=== PATIENT | female | born 1995 | race Caucasian/White ===

== ENCOUNTER 2018-06-25 16:02 | Emergency (ER) | payer BC ==
--- NOTE | 2018-06-25 16:04 | ER Report ---
History and Physical Time Seen By MD: 16:05 HPI/ROS CHIEF COMPLAINT: PASSED OUT HISTORY OF PRESENT ILLNESS: Pt has hx of syncope. States usually it is if she sees something scary or had blood work. Pt was in class today and felt as if she was going to pass out. Vision changed, dizzy, hot flash, sob then passed out. States whenever she passes out she usually drinks something and then feels better. Left the class to get something to drink and passed out again with standing. Pt passed out for ems again and vomited. Pt currently crying but states she feels better. pt was sick recently with upper resp infection/r ear infection. Ear pain is better but still has runny nose and occasional cough. no fevers. pt admits to not eating and drinking very well. no headache. no cp REVIEW OF SYSTEMS: Constitutional: No fever, no chills. Eyes: No discharge. ENT: No sore throat, recent r ear pain, runnynose Cardiovascular: No chest pain, no palpitations, + syncope Respiratory: No cough, no shortness of breath. Gastrointestinal: No abdominal pain, no vomiting. Genitourinary: No hematuria. Musculoskeletal: No back pain. Skin: No rashes. Neurological: No headache. Allergies: Coded Allergies: No Known Allergies (Verified Allergy, Unknown, 06/25/18) Home Meds Reported Medications Mesalamine (LIALDA) 1.2 Gm Tablet.dr, 1.2 GM PO QDAY 06/25/18 Desogestrel-Ethinyl Estradiol (ENSKYCE) 1 Each Tablet, PO QDAY 06/25/18 Past Medical/Surgical History pmhx: ulcerative colitis, syncope Hx Smoking: No (uses nicotine patches) Smoking Status: Former Smoker Hx Alcohol Use: Yes (socially) Constitutional Vital Sign - Last 24 Hours 06/25/18 06/25/18 06/25/18 06/25/18 16:02 16:04 16:08 16:15 Temp 97.6 Pulse 62 63 58 Resp 14 12 B/P (MAP) 108/57 (74) 108/57 98/59 (72) Pulse Ox 95 93 O2 Delivery Room Air 06/25/18 06/25/18 06/25/18 06/25/18 16:17 16:21 16:30 16:32 Pulse 52 63 49 Resp 10 B/P (MAP) 105/65 (78) 102/81 (88) 93/53 (66) Pulse Ox 98 Physical Exam General Appearance: The patient is alert, has no immediate need for airway protection and no signs of toxicity. Eyes: Pupils equal and round no pallor or injection, EOMI ENT: no pharyngeal erythema or exudates, Mucous membranes are moist, TM are nl b/l Respiratory: There are no retractions, lungs are clear to auscultation. Cardiovascular: Regular rate and rhythm. pulses are equal and symmetrical Gastrointestinal: Abdomen is soft and non tender, no masses, bowel sounds normal, no guarding, no rigidity or rebound Neurological: Cranial nerves II-XII grossly intact, no sensory or motor loss Skin: Warm and dry, no rashes. Musculoskeletal: Neck is supple non tender, no vertebral tenderness Extremities are nontender, nonswollen and have full range of motion. DIFFERENTIAL DIAGNOSIS: After history and physical exam differential diagnosis was considered for dehydration, orthostatic hypotension, electrolyte abnl, arrhythmia Medical Decision Making Data Points Result Diagram: 06/25/18 1631 06/25/18 1631 Laboratory Hematology Test 06/25/18 16:31 06/25/18 16:33 Red Blood Count 4.34 M/uL (4.17-5.56) Mean Corpuscular Volume 91.7 fL (80.0-96.0) Mean Corpuscular Hemoglobin 31.6 pg (26.0-33.0) Mean Corpuscular Hemoglobin Concent 34.5 g/dL (32.0-36.0) Red Cell Distribution Width 11.7 % (11.5-14.5) Mean Platelet Volume 7.5 fL (7.2-11.1) Neutrophils (%) (Auto) 63.5 % (39.4-72.5) Lymphocytes (%) (Auto) 28.0 % (17.6-49.6) Monocytes (%) (Auto) 4.8 % (4.1-12.4) Eosinophils (%) (Auto) 3.0 % (0.4-6.7) Basophils (%) (Auto) 0.7 % (0.3-1.4) Nucleated RBC Relative Count (auto) 0.0 /100WBC Neutrophils # (Auto) 5.7 K/uL (2.0-7.4) Lymphocytes # (Auto) 2.5 K/uL (1.3-3.6) Monocytes # (Auto) 0.4 K/uL (0.3-1.0) Eosinophils # (Auto) 0.3 K/uL (0.0-0.5) Basophils # (Auto) 0.1 K/uL (0.0-0.1) Nucleated RBC Absolute Count (auto) 0.00 K/uL Sodium Level 138 mmol/L (137-145) Potassium Level 3.6 mmol/L (3.5-5.0) Chloride Level 108 mmol/L (98-107) Carbon Dioxide Level 20 mmol/L (22-31) Blood Urea Nitrogen 9 mg/dl (7-18) Creatinine 0.80 mg/dl (0.52-1.04) Glomerular Filtration Rate Calc > 60.0 Random Glucose 115 mg/dl (75-110) Calcium Level 9.0 mg/dl (8.4-10.2) Total Bilirubin 0.3 mg/dl (0.2-1.3) Aspartate Amino Transf (AST/SGOT) 22 U/L (0-35) Alanine Aminotransferase (ALT/SGPT) 21 U/L (0-56) Alkaline Phosphatase 59 U/L (0-126) Total Protein 7.2 g/dl (6.3-8.2) Albumin 3.8 g/dl (3.5-5.0) Human Chorionic Gonadotropin, Qual Negative (NEGATIVE) Influenza Virus Type A (PCR) Negative (NEGATIVE) Influenza Virus Type B (PCR) Negative (NEGATIVE) Chemistry Test 06/25/18 16:31 06/25/18 16:33 White Blood Count 9.0 k/uL (4.5-11.0) Red Blood Count 4.34 M/uL (4.17-5.56) Hemoglobin 13.7 g/dL (12.0-16.0) Hematocrit 39.8 % (34.0-47.0) Mean Corpuscular Volume 91.7 fL (80.0-96.0) Mean Corpuscular Hemoglobin 31.6 pg (26.0-33.0) Mean Corpuscular Hemoglobin Concent 34.5 g/dL (32.0-36.0) Red Cell Distribution Width 11.7 % (11.5-14.5) Platelet Count 391 K/uL (150-450) Mean Platelet Volume 7.5 fL (7.2-11.1) Neutrophils (%) (Auto) 63.5 % (39.4-72.5) Lymphocytes (%) (Auto) 28.0 % (17.6-49.6) Monocytes (%) (Auto) 4.8 % (4.1-12.4) Eosinophils (%) (Auto) 3.0 % (0.4-6.7) Basophils (%) (Auto) 0.7 % (0.3-1.4) Nucleated RBC Relative Count (auto) 0.0 /100WBC Neutrophils # (Auto) 5.7 K/uL (2.0-7.4) Lymphocytes # (Auto) 2.5 K/uL (1.3-3.6) Monocytes # (Auto) 0.4 K/uL (0.3-1.0) Eosinophils # (Auto) 0.3 K/uL (0.0-0.5) Basophils # (Auto) 0.1 K/uL (0.0-0.1) Nucleated RBC Absolute Count (auto) 0.00 K/uL Glomerular Filtration Rate Calc > 60.0 Calcium Level 9.0 mg/dl (8.4-10.2) Total Bilirubin 0.3 mg/dl (0.2-1.3) Aspartate Amino Transf (AST/SGOT) 22 U/L (0-35) Alanine Aminotransferase (ALT/SGPT) 21 U/L (0-56) Alkaline Phosphatase 59 U/L (0-126) Total Protein 7.2 g/dl (6.3-8.2) Albumin 3.8 g/dl (3.5-5.0) Human Chorionic Gonadotropin, Qual Negative (NEGATIVE) Influenza Virus Type A (PCR) Negative (NEGATIVE) Influenza Virus Type B (PCR) Negative (NEGATIVE) EKG/Imaging EKG Interpretation Sinus vidal with sinus arrhythmia @ 52 ED Course/Re-evaluation Clinical Indication for ER IV: Hydration, IV Access ED Course check labs and orthostatics. Pt not orthstatic Pt is feeling better. Fluids completed. labs stable. PT is to follow up with [facility]. We do not have any holter monitors available in the hospital currently. If she continues to have frequent syncope she was told to return Decision to Disposition Date: Jun 25, 2018 Decision to Disposition Time: 17:29 Depart Departure Latest Vital Signs Vital Signs Date Time Temp Pulse Resp B/P (MAP) Pulse Ox O2 Delivery O2 Flow Rate FiO2 06/25/18 16:32 49 10 98 06/25/18 16:30 93/53 (66) 06/25/18 16:08 97.6 Room Air Impression: Primary Impression: Syncope and collapse Condition: Improved Disposition: HOME OR SELF-CARE Patient Instructions: Syncope (ED) Additional Instructions: Your blood work and chest xray today were stable. Follow up with your doctor. Return if symptoms worsen or you have any concerns. ADELAIDA NUNEZ DO Jun 25, 2018 16:04
[2018-06-25] MEDS ORDERED: DESO1TAB74 PO (16:13)
[2018-06-25] MEDS ORDERED: MESA1.2T2 PO (16:13)
--- NOTE | 2018-06-25 16:32 | EKG ---
FACILITY: [facility] [place] PATIENT NAME: RHODA LIMON : [id number] MR: [id number] V: [id number] EXAM DATE: ORDERING PHYSICIAN: ADELAIDA NUNEZ TECHNOLOGIST: JEAN PAUL Test Reason : PASSED OUT Blood Pressure : / mmHG Vent. Rate : 052 BPM Atrial Rate : 052 BPM P-R Int : 168 ms QRS Dur : 084 ms QT Int : 468 ms P-R-T Axes : 000 052 066 degrees QTc Int : 435 ms Sinus bradycardia with sinus arrhythmia Otherwise normal ECG No previous ECGs available Confirmed by CELE MOISE ([id number]) on 06/25/2018 8:21:20 PM Referred By: ENRIQUE Confirmed By:CELE MOISE
[2018-06-25 16:38] LABS: PLATELET COUNT, AUTOMATED 391 K/uL (150-450)
[2018-06-25 17:20] VITALS: BP 114/74
--- NOTE | 2018-06-25 17:25 | RADIOLOGY IMAGING REPORT ---
[place] [facility] [place] Veronique House : 1995 MR: [id number] V: [id number] EXAM DATE: ORDERING PHYSICIAN: ADELAIDA NUNEZ TECHNOLOGIST: [place] [facility] [place] Patient: Veronique House : 1995 Visit/Account:[id number] Date of Sevice: 06/25/2018 2 VIEWS CHEST INDICATION: Cough. Loss of consciousness. COMPARISON: None available FINDINGS: Cardiomediastinal silhouette and pulmonary vessels within normal limits. There is no focal infiltrate or lobar consolidation. There is no pneumothorax or pleural effusion. No nodule. Upper abdomen is unremarkable. No acute bony abnormality. IMPRESSION: 1. No acute cardiopulmonary process. Report Dictated By: Hans Patel at 06/25/2018 5:19 PM Report E-Signed By: Hans Patel at 06/25/2018 5:20 PM WSN:[id number]
== END 2018-06-25 17:35 | disposition home or self-care (01) ==
LOC: ER 16:07
DX: R55 Syncope and collapse (principal)
CPT/HCPCS: 71046; 82040; 82247; 82310; 82374; 82435; 82565; 82947; 84075; 84132; 84155; 84295; 84450; 84460; 84520; 84703; 85025; 87502; 93005; 99284

== ENCOUNTER → 2018-06-25 | Outpatient (CLI) | payer BC ==
[~2018-06-25] MED LIST: DESO1TAB74 PO; MESA1.2T2 PO
== END ==
LOC: AMB 15:38
PROVIDERS: ATTEND Nurse Practitioner
DX: R55 Syncope and collapse (principal); R11.10 Vomiting, unspecified
CPT/HCPCS: A0425; A0427

== ENCOUNTER → 2018-09-12 | Outpatient (CLI) | payer BC | LOC: US 01:18 | PROVIDERS: ATTEND Internal Medicine | DX: R55 Syncope and collapse (principal) | CPT/HCPCS: 93306 ==

== ENCOUNTER 2018-10-03 19:27 | Emergency (ER) | payer BC ==
[2018-10-03 19:33] VITALS: BP 135/90
--- NOTE | 2018-10-03 19:39 | ER Report ---
History and Physical Time Seen By MD: 19:39 Hx. of Stated Complaint: TOES INFECTED HPI/ROS CHIEF COMPLAINT: Toe infections HISTORY OF PRESENT ILLNESS: 22-year-old female patient presents to emergency room with complaint of bilateral total infections. Patient states that she had a pedicure done this past week. She states that the next day her toes started becoming red, tender to touch. Patient states that she has fair amount of pain when she is ambulating. She states that her pain is a 2 out of 10. She denies any nausea, vomiting or diarrhea. She denies having any fevers or chills. Patient states she is not taking any medication for this. She states that there was some bleeding after her pedicure taking her believe there was some damage to skin around the toenails. Allergies: Coded Allergies: No Known Allergies (Verified Allergy, Unknown, 10/03/18) Home Meds Active Scripts Cephalexin 500 Mg Tab (KEFLEX 500 MG TAB) 500 Mg Tablet, 500 MG PO TID, #21 TAB Prov:BIANCA ARMSTRONG [employer] 10/03/18 Reported Medications Mesalamine (LIALDA) 1.2 Gm Tablet.dr, 1.2 GM PO QDAY 06/25/18 Desogestrel-Ethinyl Estradiol (ENSKYCE) 1 Each Tablet, PO QDAY 06/25/18 Past Medical/Surgical History Patient has a past medical history of Crohn's disease, alcohol use. Patient has a surgical history of wisdom teeth removed Reviewed Nurses Notes: Yes Hx Smoking: No (uses nicotine patches) Smoking Status: Former Smoker Hx Substance Use Disorder: No Hx Alcohol Use: Yes (socially) Constitutional Vital Sign - Last 24 Hours 10/03/18 19:33 Temp 98.1 Pulse 92 Resp 16 B/P (MAP) 135/90 Pulse Ox 98 Physical Exam General Appearance: The patient is alert, has no immediate need for airway protection and no current signs of toxicity. Respiratory: Chest is non tender, lungs are clear to auscultation. Cardiac: regular rate and rhythm Gastrointestinal: Abdomen is soft and non tender, no masses, bowel sounds normal. Skin: No rashes or lesions. Patient does have redness, swelling to bilateral third toes, she has some redness to the fifth toes as well. DIFFERENTIAL DIAGNOSIS: After history and physical exam differential diagnosis was considered for cellulitis. Medical Decision Making ED Course/Re-evaluation ED Course Patient was admitted to an exam room, history and physical were obtained. Differential diagnoses were considered. On examination lungs are clear, heart is regular, abdomen soft nontender. Patient does have some redness and erythema to bilateral third and fifth toes. They're tender to touch. I believe that this is likely a cellulitis secondary to trauma caused by the pedicure. We will go ahead and treat her with Keflex 500 mg 3 times a day 7 days. She is follow-up with her primary care provider in a week with any concerns. I anticipate that things will improve over the next 48-72 hours. She is to return to the emergency room if condition worsens. Patient verbalized understanding and agreement with plan. Decision to Disposition Date: Oct 03, 2018 Decision to Disposition Time: 19:51 Depart Departure Latest Vital Signs Vital Signs Date Time Temp Pulse Resp B/P (MAP) Pulse Ox O2 Delivery O2 Flow Rate FiO2 10/03/18 19:33 98.1 92 16 135/90 98 Impression: Primary Impression: Cellulitis of toe of left foot Additional Impression: Cellulitis of toe of right foot Condition: Improved Disposition: HOME OR SELF-CARE New Scripts Cephalexin 500 Mg Tab (KEFLEX 500 MG TAB) 500 Mg Tablet 500 MG PO TID, #21 TAB Prov: BIANCA ARMSTRONG 10/03/18 Patient Instructions: Cellulitis (ED) Additional Instructions: Limit activity by pain. Take Tylenol or Ibuprofen as needed for pain. Get plenty of rest. Take the antibiotics as directed. Return to the ER if condition worsens. Problem Qualifiers BIANCA ARMSTRONG Oct 03, 2018 19:39
[2018-10-03] MEDS ORDERED: CEPH500T7 PO (19:49)
== END 2018-10-03 20:02 | disposition home or self-care (01) ==
LOC: ER 19:46
DX: L03.032 Cellulitis of left toe (principal); L03.031 Cellulitis of right toe
CPT/HCPCS: 99282

== ENCOUNTER 2018-10-13 11:57 | Emergency (ER) | payer BC ==
[~2018-10-13 11:57] MED LIST changes: +CEPH500T7 PO
--- NOTE | 2018-10-13 12:00 | ER Report ---
History and Physical Time Seen By MD: 12:00 HPI/ROS CHIEF COMPLAINT: Infection of toes HISTORY OF PRESENT ILLNESS: 21-year-old female patient presents to emergency room with complaint of infection in toes. Patient states that she was seen on the sixth and was diagnosed with cellulitis of toes on the right and left foot. Patient states that she took the antibiotics as prescribed last time and had no improvement. She states she did follow up with urgent care and was given a prescription for steroids. She states that she was concerned about taking them as the provider seemed unsure as to how effective that would be. Patient states she has pain that is worse in the evenings. She states that starts in the mo rning. She denies any fevers, chills, nausea, vomiting or diarrhea. Allergies: Coded Allergies: azithromycin (Verified Allergy, Severe, HIVES, 10/13/18) Home Meds Active Scripts Sulfamethoxazole/Trimet 800-160 Mg Tab (BACTRIM DS TABLET) 1 Each Tablet, 1 TAB PO Q12H, #14 TAB Prov:BIANCA ARMSTRONG [facility] 10/13/18 Cephalexin 500 Mg Tab (KEFLEX 500 MG TAB) 500 Mg Tablet, 500 MG PO TID, #21 TAB Prov:BIANCA ARMSTRONG [facility] 10/03/18 Reported Medications Mesalamine (LIALDA) 1.2 Gm Tablet.dr 1.2 GM PO QDAY 06/25/18 Desogestrel-Ethinyl Estradiol (ENSKYCE) 1 Each Tablet, PO QDAY 06/25/18 Past Medical/Surgical History Patient has a past medical history of ulcerative colitis, alcohol use. Patient has surgical history of wisdom teeth removal. Reviewed Nurses Notes: Yes Hx Smoking: No (uses nicotine patches) Smoking Status: Former Smoker Hx Substance Use Disorder: No Hx Alcohol Use: Yes (socially) Constitutional Vital Sign - Last 24 Hours 10/13/18 12:04 Temp 98.5 Pulse 86 Resp 12 B/P (MAP) 143/93 Pulse Ox 95 O2 Delivery Room Air Physical Exam General appearance: Alert no distress. Respiratory: Chest is non tender, lungs are clear to auscultation. Cardiac: Regular rate and rhythm. Skin: Patient has redness to bilateral toes. Tender to the touch. DIFFERENTIAL DIAGNOSIS: After history and physical exam differential diagnosis was considered for cellulitis, inflammatory process. Medical Decision Making ED Course/Re-evaluation ED Course Patient was admitted and examined, history and physical were obtained. The differential diagnoses were considered. On examination lungs are clear, heart is regular, abdomen is soft and nontender. On evaluation patient does have tenderness to the toes. With her not having any improvement in her symptoms with antibiotics we will go ahead and switch her to Bactrim. She states that twice a day. I would also like her to take the steroids which were prescribed. She is to follow-up with her primary care provider if symptoms persist. If she has no improvement in the next 72 hours and since she will be gone for spring break out like follow-up with the medical provider [place]. Patient verbalized understanding and agreement with plan. Decision to Disposition Date: Oct 13, 2018 Decision to Disposition Time: 12:12 Depart Departure Latest Vital Signs Vital Signs Date Time Temp Pulse Resp B/P (MAP) Pulse Ox O2 Delivery O2 Flow Rate FiO2 10/13/18 12:04 98.5 86 12 143/93 95 Room Air Impression: Primary Impression: Cellulitis of toe of left foot Additional Impression: Cellulitis of toe of right foot Condition: Improved Disposition: HOME OR SELF-CARE New Scripts Sulfamethoxazole/Trimet 800-160 Mg Tab (BACTRIM DS TABLET) 1 Each Tablet 1 TAB PO Q12H, #14 TAB Prov: BIANCA ARMSTRONG 10/13/18 Patient Instructions: Cellulitis (ED) Additional Instructions: Take the antibiotics as directed. Return to the ER if condition worsens. You may take the steroids, they may help and prrobably won't hurt. If there is no improvement in the next 72 hours follow up with the doctor [place] the cruise [place]. Problem Qualifiers BIANCA ARMSTRONG Oct 13, 2018 12:00
[2018-10-13 12:04] VITALS: BP 143/93
[2018-10-13] MEDS ORDERED: SULF-198 PO (12:11)
== END 2018-10-13 12:19 | disposition home or self-care (01) ==
LOC: ER 11:59
DX: L03.031 Cellulitis of right toe (principal); L03.032 Cellulitis of left toe